=== PATIENT | female | born 1965 | race Caucasian/White ===

== ENCOUNTER 2016-04-27 13:30 | Day surgery (SDC) | payer OTHER ==
[~2016-04-27] VITALS: Ht 167.6 cm; Wt 80.7 kg
[2016-04-27 14:12] VITALS: Ht 167.6 cm; Wt 80.7 kg
[2016-04-27 15:26] VITALS: BP 167/81; PULSE 71; RESP 18
[2016-04-27] MEDS ORDERED: FENTAnyl 50 MCG/ML VIAL ONE (15:57)
[2016-04-27] MEDS ORDERED: MIDAZOLAM 1 MG/ML 2 ML INJ ONE ×2 (15:58)
[2016-04-27 16:15] VITALS: BP 135/71; PULSE 64; RESP 13
--- NOTE | 2016-04-29 07:15 | GILP ---
DATE OF PROCEDURE: 04/27/2016 PREOPERATIVE DIAGNOSIS: Pelvic pain, abdominal pain, past history of diverticulitis. PROCEDURE DONE: Colonoscopy, using a pediatric colonoscope. POSTOPERATIVE DIAGNOSIS: Diverticulosis distributed scattered all over the colon, but no active div erticulitis noted. DESCRIPTION OF PROCEDURE: The patient was put in left lateral decubitus. After obtaining informed consent, the patient was sedated with 4 mg IV Versed and 75 mcg of fentanyl. Rectal exam done which was unremarkable. Advanced a pediatric colonoscope very carefully with water infusion all the way to cecum. Ileocecal valve, appendiceal opening identified. Cecum, ascending colon showed few diver ticula as well as the transverse colon. In the descending colon and sigmoid colon more diverticula noted, but there is no active diverticulitis noted. Rectum including retroflexion was normal and th en the scope was withdrawn. Patient had no complications. Dear : The patient keeps on complaining as if there is something like a ball in the pelvis that I am not ce rtain what this complaint is. I have asked her to go back and see [facility] doctor. Meanwhile, I will request a pelvic ultrasound to clarify her symptoms. If necessary, she may require CT scan of the abdomen. At present, she will follow up with you and I will see her in 8 weeks. Dictated By: ABIEL BEDOYA Conf#: [id number] DID#: [id number]
== END 2016-04-27 16:23 | disposition home or self-care (01) ==
LOC: GIL 13:30
PROVIDERS: ATTEND Internal Medicine
DX: R19.4 Change in bowel habit (principal); K57.90 Diverticulosis of intestine, part unspecified, without perforation or abscess without bleeding
CPT/HCPCS: 45378; J2250; J3010